=== PATIENT | male | born 1960 ===

== ENCOUNTER 2017-03-28 13:34 | Emergency (ER) | payer MEDICAID ==
--- NOTE | 2017-03-28 14:06 | C.PDOC ---
Time Seen by Provider: 03/28/17 13:49 Chief Complaint (Nursing): Upper Extremity Problem/Injury History Per: Patient, Family Onset/Duration Of Symptoms: Days (about 3 months), Persistent Current Symptoms Are (Timing): Still Present Quality: "Pain" Severity: Moderate Exacerbating Factor(s): Strenuous Use Of Affected Area, Movement Additional History Per: Prior Records Past Medical History Reviewed: Historical Data, Nursing Documentation, Vital Signs Vital Signs: Last Vital Signs Temp 99.2 F 03/28/17 13:37 Pulse 92 H 03/28/17 13:37 Resp 18 03/28/17 13:37 BP 185/91 H 03/28/17 14:04 Pulse Ox 96 03/28/17 15:19 - Medical History PMH: HTN Other PMH: Gout Family History: States: Unknown Family Hx - Social History Hx Alcohol Use: No Hx Substance Use: No - Immunization History Hx Tetanus Toxoid Vaccination: No Hx Influenza Vaccination: No Hx Pneumococcal Vaccination: No Review Of Systems Except As Marked, All Systems Reviewed And Found Negative. Constitutional: Negative for: Fever ENT: Negative for: Throat Pain Cardiovascular: Negative for: Chest Pain Respiratory: Negative for: Shortness of Breath, Hemoptysis Gastrointestinal: Negative for: Vomiting, Abdominal Pain Musculoskeletal: Positive for: Neck Pain (left), Shoulder Pain (left). Negative for: Back Pain Neurological: Negative for: Weakness, Numbness, Seizures, Altered Mental Status Physical Exam - Physical Exam Appears: Non-toxic, No Acute Distress Skin: Normal Color, Warm, Dry, No Rash Head: Atraumatic, Normacephalic Eye(s): bilateral: PERRL, EOMI Neck: Normal ROM, No Midline Cervical Tenderness, No Step Off Deformity, Supple Chest: Symmetrical, No Deformity Cardiovascular: Rhythm Regular Respiratory: Normal Breath Sounds, No Accessory Muscle Use Gastrointestinal/Abdominal: Soft, No Tenderness Back: No CVA Tenderness Extremity: Normal ROM (but painful of left shoulder), No Tenderness, Pedal Edema , Capillary Refill (wnl), No Deformity, No Swelling Pulses: Left Radial: Normal Neurological/Psych: Oriented x3, Normal Motor, Normal Sensation ED Course And Treatment - Laboratory Results Result Diagrams: 03/28/17 14:14 03/28/17 14:14 Lab Interpretation: Abnormal Interpretation Of Abnormal: Renal insufficiency ECG: Interpreted By Me, Viewed By Me ECG Rhythm: Sinus Rhythm, Nonspecific Changes ECG Interpretation: No Acute Changes Rate From EC O2 Sat by Pulse Oximetry: 96 (on RA) Pulse Ox Interpretation: Normal - Radiology CXR: Viewed By Me, Read By Radiologist CXR Interpretation: Yes: Other (Possible small left pleural effusion) - Other Rad Left shoulder x-rays X-Ray: Viewed By Me, Read By Radiologist Interpretation: IMPRESSION: No acute fracture or dislocation. 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 Progress Note: Pt feels much better and wants to go home. Reassessment Condition: Improved Medical Decision Making Medical Decision Making: Pt was found to be hypertensive in the ED. Will increased pt's Cozaar from 50mg qd to 50mg bid. Disposition Counseled Patient/Family Regarding: Studies Performed, Diagnosis, Need For Followup, Rx Given - Disposition Referrals: Mukesh Jimenez [Family Provider] - Disposition: HOME/ ROUTINE Disposition Time: 15:48 Condition: IMPROVED Additional Instructions: Increase your Losartan to 50mg twice a day. Follow up with your doctor this week for further evaluation and treatment. Return to the ER if you develop fever , redness, swelling, chest pain, shortness of breath, weakness, numbness, worsening of symptoms or if you have any other concerns. Prescriptions: Losartan [Cozaar] 50 mg PO BID #60 tab traMADol/Acetaminophen [Ultracet 325 MG-37.5 MG] 1 tab PO Q4 PRN #30 tab PRN Reason: Pain Instructions: Shoulder Pain (ED), Hypertension (ED), Impaired Kidney Function ( ED) Print Language: [place] - Clinical Impression Clinical Impression: Uncontrolled hypertension, Arthritis of left shoulder region, Renal insufficiency
[2017-03-28 14:22] LABS: BASO % 0.6 % (0.0-2.0); EOS # 0.2 K/uL (0.0-0.7); EOS % 2.6 % (0.0-4.0); HEMATOCRIT 40.2 % (35.0-51.0); LYMPH # 1.5 K/uL (1.0-4.3); LYMPH % 20.7 % (20.0-40.0); MEAN CELL VOLUME 93.8 fL (80.0-94.0); MEAN CORPUSCULAR HEMOGLOBIN 30.5 pg (27.0-31.0); MEAN CORPUSCULAR HGB CONC 32.5 g/dL (33.0-37.0); MEAN PLATELET VOLUME 9.5 fL (7.2-11.7); MONO # 0.6 K/uL (0.0-0.8); MONO % 8.3 % (0.0-10.0); NRBC % 0.1 % (0.0-2.0); RED CELL DISTRIBUTION WIDTH 13.5 % (11.5-14.5); WHITE BLOOD COUNT 7.2 K/uL (4.8-10.8)
--- NOTE | 2017-03-28 14:35 | RAD ---
HISTORY: Left shoulder region pain, hypertensive. COMPARISON: None TECHNIQUE: Chest PA and lateral FINDINGS: LUNGS: The right lung is clear. PLEURA: There is blunting of the left costophrenic angle. No right significant pleural effusion identified. No pneumothorax apparent. CARDIOVASCULAR: Normal. OSSEOUS STRUCTURES: No significant abnormalities. VISUALIZED UPPER ABDOMEN: Normal. OTHER FINDINGS: None. IMPRESSION: Blunting of the left costophrenic angle could represent pleural thickening or small pleural effusion. No focal consolidation.
--- NOTE | 2017-03-28 14:38 | RAD ---
PROCEDURE: Radiographs of the Left Shoulder HISTORY: Left shoulder area pain COMPARISON: No prior. FINDINGS: BONES: Bone alignment and mineralization are normal. There is no acute fracture or bone destruction. JOINTS: There is moderate degenerative osteoarthrosis in the acromioclavicular joint with reduced joint space and hyperostosis. The glenohumeral joint is normal. SOFT TISSUES: Normal. OTHER FINDINGS: None. IMPRESSION: No acute fracture or dislocation. 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
[2017-03-28] MEDS ORDERED: Sodium Chloride 0.9% 1,000 ML IV ONE (14:48)
[2017-03-28 14:57] LABS: ALB/GLOB RATIO 1.2 (1.0-2.1); BILIRUBIN,TOTAL 0.5 mg/dL (0.2-1.3); TOTAL PROTEIN 7.1 g/dL (6.3-8.3)
[2017-03-28 14:58] LABS: CALCIUM 8.7 mg/dl (8.6-10.4); URIC ACID 8.1 mg/dL (3.5-8.5)
[2017-03-28 15:09] LABS: TROPONIN I 0.014 ng/mL (0.00-0.120)
[2017-03-28 16:05] VITALS: BP 166/86; PULSE 90; RESP 16; TEMP 97.8; O2SAT 98
--- NOTE | 2017-03-30 07:55 | CARD ---
APPROVED REPORT EKG Measurement Heart [id number] CO [id number] <Conclusion> Normal sinus rhythm Normal ECG
== END 2017-03-28 16:05 | disposition home or self-care (01) ==
LOC: C.ER 13:34
DX: M13.812 Other specified arthritis, left shoulder (principal); I10 Essential (primary) hypertension; N28.9 Disorder of kidney and ureter, unspecified

== ENCOUNTER 2018-01-18 13:34 | Emergency (ER) | payer MEDICAID ==
[2018-01-18 16:03] LABS: BASO % 0.8 % (0.0-2.0); EOS # 0.2 K/uL (0.0-0.7); EOS % 3.1 % (0.0-4.0); HEMOGLOBIN 12.8 g/dL (12.0-18.0); LYMPH # 1.2 K/uL (1.0-4.3); LYMPH % 21.6 % (20.0-40.0); MEAN CELL VOLUME 94.7 fL (80.0-94.0); MEAN CORPUSCULAR HEMOGLOBIN 31.5 pg (27.0-31.0); MEAN CORPUSCULAR HGB CONC 33.3 g/dL (33.0-37.0); MEAN PLATELET VOLUME 9.7 fL (7.2-11.7); MONO # 0.4 K/uL (0.0-0.8); MONO % 7.3 % (0.0-10.0); NEUT # 3.7 K/uL (1.8-7.0); NEUT % 67.2 % (50.0-75.0); NRBC % 0.1 % (0.0-2.0); RBC 4.05 Mil/uL (4.40-5.90); RED CELL DISTRIBUTION WIDTH 13.1 % (11.5-14.5); WHITE BLOOD COUNT 5.6 K/uL (4.8-10.8)
[2018-01-18 16:11] LABS: URINE BILIRUBIN NEGATIVE (NEGATIVE); URINE BLOOD NEGATIVE (NEGATIVE); URINE CLARITY Clear (Clear); URINE COLOR Straw (YELLOW); URINE GLUCOSE (UA) 1+ mg/dL (Normal); URINE LEUKOCYTE ESTERASE NEG Leu/uL (Negative); URINE PROTEIN 2+ mg/dL (NEGATIVE); URINE UROBILINOGEN NORMAL mg/dL (0.2-1.0)
[2018-01-18 16:16] LABS: ALB/GLOB RATIO 1.2 (1.0-2.1); ALBUMIN 3.8 g/dL (3.5-5.0); CALCIUM 7.9 mg/dl (8.6-10.4)
--- NOTE | 2018-01-18 18:21 | C.PDOC ---
History Of Present Illness 57yo male, with history of renal insufficiency, presents to ED with complaints of right sided abdominal pain for the past 2 days. Pain is unchanged by food. Patient states he went to see his PMD who informed him to come to ER for further evaluation. Normal BM today. Patient denies any associated nausea, vomiting, diarrhea, fever, or complaints. Time Seen by Provider: 01/18/18 15:09 Chief Complaint (Nursing): Abdominal Pain History Per: Patient History/Exam Limitations: no limitations Onset/Duration Of Symptoms: Days (2) Current Symptoms Are (Timing): Still Present Location Of Pain/Discomfort: RUQ, RLQ Associated Symptoms: denies: Fever, Chills, Nausea, Vomiting, Diarrhea Past Medical History Reviewed: Historical Data, Nursing Documentation, Vital Signs Vital Signs: Last Vital Signs Temp 98.6 F 01/18/18 19:24 Pulse 80 01/18/18 19:24 Resp 20 01/18/18 19:24 BP 192/99 H 01/18/18 19:24 Pulse Ox 96 01/18/18 19:24 - Medical History PMH: HTN Surgical History: No Surg Hx Family History: States: Unknown Family Hx - Social History Hx Alcohol Use: No Hx Substance Use: No - Immunization History Hx Tetanus Toxoid Vaccination: Yes Hx Influenza Vaccination: Yes Hx Pneumococcal Vaccination: Yes Review Of Systems Except As Marked, All Systems Reviewed And Found Negative. Constitutional: Negative for: Fever, Chills Gastrointestinal: Positive for: Abdominal Pain. Negative for: Nausea, Vomiting , Diarrhea Physical Exam - Physical Exam Appears: Non-toxic, No Acute Distress Skin: Normal Color, Warm, Dry Head: Atraumatic, Normacephalic Eye(s): bilateral: Normal Inspection, PERRL, EOMI Neck: Normal ROM, Supple Chest: Symmetrical Cardiovascular: Rhythm Regular Respiratory: Normal Breath Sounds Gastrointestinal/Abdominal: Bowel Sounds (normal), Soft, Tenderness (right sided ), Distention Back: Normal Inspection Extremity: Normal ROM Neurological/Psych: Oriented x3 ED Course And Treatment - Laboratory Results Result Diagrams: 01/18/18 16:00 01/18/18 16:00 O2 Sat by Pulse Oximetry: 98 (RA) Pulse Ox Interpretation: Normal Progress Note: Patient given Morphine, Tylenol and Zofran in ER. Currently pending CT abdomen and pelvis. On re-evaluation, pt is sleeping. Upon awakening , pt notes pain improved. Tolerating PO. ABdomen soft, nontender. Discussed with pt risks of uncontrolled HTN. Pt notes he is due to take his BP medication. Denies chest pain, sob, dizziness, and headache. Also discussed the results of labs including worsening renal function and the importance to see nephrology. The results of labs and CT given and instructed strict follow up. Case discussed with Dr Cruz including labs and cT. agreed upon discharge with outpt follow up. Case discussed with Dr Sparks who reviewed work up and agreed upon plan and discharge. Disposition - Disposition Referrals: Mateo Rutledge MD [Staff Provider] - Lew Pozo MD [Staff Provider] - Disposition: HOME/ ROUTINE Disposition Time: 19:15 Condition: STABLE Additional Instructions: Vaya a piedra mdico o la clnica en 2-5 krause sin falta, para mas evaluacin. Tarrants los medicamentos elsie indicado. Volver a la cassi de emergencia en cualquier momento si los sntomas persisten o empeoran. Instructions: Acute Abdomen (Belly Pain), Adult (DC) Forms: [employer] (Telugu) Print Language: DIVEHI - Clinical Impression Clinical Impression: Abdominal pain, Renal insufficiency - PA / CRITICAL CARE NURSE SPECIALIST / Resident Statement MD/DO has reviewed & agrees with the documentation as recorded. - Scribe Statement The provider has reviewed the documentation as recorded by the Scribe (Shelley Tsia) Provider Attestation: All medical record entries made by the Scribe were at my direction and personally dictated by me. I have reviewed the chart and agree that the record accurately reflects my personal performance of the history, physical exam, medical decision making, and the department course for this patient. I have also personally directed, reviewed, and agree with the discharge instructions and disposition.
--- NOTE | 2018-01-18 19:02 | CT ---
PROCEDURE: CT Abdomen and Pelvis without intravenous contrast HISTORY: pain COMPARISON: None. TECHNIQUE: Without contrast.. Contrast Dose: 0 Radiation dose: Total exam DLP = Total exam DLP = 1135.05 mGy-cm. This CT exam was performed using one or more of the following dose reduction techniques: Automated exposure control, adjustment of the mA and/or kV according to patient size, and/or use of iterative reconstruction technique. FINDINGS: LOWER THORAX: Unremarkable. LIVER: Unremarkable. No gross lesion or ductal dilatation. GALLBLADDER AND BILE DUCTS: Unremarkable. PANCREAS: Unremarkable. No gross lesion or ductal dilatation. SPLEEN: Unremarkable. ADRENALS: Unremarkable. No mass. KIDNEYS AND URETERS: Mildly atrophic kidneys. Lobulated borders. Exophytic rounded low-density mid right renal mass, 8 mm, likely cysts. Cannot rule out neoplasm. Consider correlation with ultrasound examination. No hydronephrosis. No renal calculus. VASCULATURE: Unremarkable. No aortic aneurysm. BOWEL: Unremarkable. No obstruction. No gross mural thickening. APPENDIX: Unremarkable. Normal appendix. PERITONEUM: Unremarkable. No free fluid. No free air. LYMPH NODES: Unremarkable. No enlarged lymph nodes. BLADDER: Suboptimally distended. No gross abnormality. REPRODUCTIVE: Unremarkable prostate. BONES: ORIF left hip. OTHER FINDINGS: None. IMPRESSION: No acute abnormality. Mildly atrophic kidneys. Nonspecific exophytic low-density mid right renal mass. Consider correlation with ultrasound on a nonemergent basis. Otherwise unremarkable examination.
[2018-01-18 19:25] VITALS: BP 192/99; PULSE 80; RESP 20; TEMP 98.6
[2018-01-19 16:04] VITALS: O2SAT 98
== END 2018-01-18 20:00 | disposition home or self-care (01) ==
LOC: C.ER 13:34
DX: R10.11 Right upper quadrant pain (principal); N28.9 Disorder of kidney and ureter, unspecified